=== PATIENT | female | born 1950 | race Two or more races ===

== ENCOUNTER 2017-03-17 21:58 | Emergency (ER) | payer MEDICARE ==
[~2017-03-17] VITALS: Ht 154.9 cm; Wt 59.0 kg
[2017-03-18 02:40] VITALS: BP 156/98
[2017-03-18] MEDS ORDERED: LORazepam 0.5 MG TAB PO ONE (03:15)
[2017-03-18] MEDS ORDERED: HYDROcodone-ACET 5/325MG TAB PO ONE (03:15)
[2017-03-18 03:25] LABS: Urine Bilirubin Negative (Negative); Urine Blood Negative /uL (Negative); Urine Color Yellow (Yellow); Urine Ketone Negative (Negative); Urine RBC 2 /hpf (0 - 4); Urine Squamous Epithelial Cell FEW /hpf (<5); Urine Urobilinogen Normal (Negative)
[2017-03-18 03:29] LABS: Urine Glucose 2+ mg/dL (Normal); Urine Nitrite POSITIVE (Negative)
[2017-03-18] MEDS ORDERED: NITROFURANTOIN (MONO) 100 mg CAP PO ONE (03:45)
== END 2017-03-18 04:25 | disposition home or self-care (01) ==
LOC: ER 22:00
DX: S86.912A Strain of unspecified muscle(s) and tendon(s) at lower leg level, left leg, initial encounter (principal); N39.0 Urinary tract infection, site not specified; X58.XXXA Exposure to other specified factors, initial encounter; Y93.89 Activity, other specified; Y99.8 Other external cause status; Y92.89 Other specified places as the place of occurrence of the external cause; Z88.1 Allergy status to other antibiotic agents
CPT/HCPCS: 73562; 81001